=== PATIENT | female | born 1990 | race Caucasian/White ===

== ENCOUNTER 2017-09-16 16:44 | Emergency (ER) | payer SELFPAY ==
[~2017-09-16] VITALS: Ht 165.1 cm; Wt 72.6 kg
[2017-09-16 16:48] VITALS: BP 124/94
[2017-09-16 19:30] VITALS: BP 117/67
== END 2017-09-16 19:15 | disposition home or self-care (01) ==
LOC: MED 16:44
DX: S00.33XA Contusion of nose, initial encounter (principal); V89.2XXA Person injured in unspecified motor-vehicle accident, traffic, initial encounter; Y93.19 Activity, other involving water and watercraft; Y92.488 Other paved roadways as the place of occurrence of the external cause; Y99.8 Other external cause status
CPT/HCPCS: 99283

== ENCOUNTER 2017-12-04 22:16 | Inpatient (IN) | payer OTHER ==
[~2017-12-04] VITALS: Ht 162.6 cm; Wt 77.1 kg
--- NOTE | 2017-12-04 22:16 | NUR ---
Patient BIBA BLS, transferred to bed 4. RN evaluating patient at bedside.
[2017-12-04 22:19] VITALS: BP 148/84
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
[2017-12-04] MEDS ORDERED: ALPRAZolam 0.5 MG TAB PO ONE (22:40)
--- NOTE | 2017-12-04 23:14 | NUR ---
UNABLE TO OBTAIN EKG AT THIS TIME, DR ERNANDEZ AWARE, WILL ATTEMPT LATER
[2017-12-04] MEDS ORDERED: HALOPERIDOL IM 5 MG/ML VIAL IM ONE (23:15)
[2017-12-04] MEDS ORDERED: diphenhydrAMINE 50 MG/ML VIAL IM ONE (23:15)
[2017-12-04 23:51] LABS: BASOPHILS # (AUTO) 0.1 K/uL (0.00-0.22); BASOPHILS % (AUTO) 0.9 % (0.0-2.0); EOSINOPHILS # (AUTO) 0.5 K/uL (0-0.4); EOSINOPHILS % (AUTO) 5.8 % (0.0-4.0); HEMATOCRIT 39.7 % (36-48); HEMOGLOBIN 13.7 g/dL (12.0-16.0); LYMPHOCYTES # (AUTO) 2.3 K/uL (2.5-16.5); LYMPHOCYTES % (AUTO) 24.7 % (20.5-51.1); MEAN CORPUSCULAR HEMOGLOBIN 31 pg (27-31); MEAN CORPUSCULAR HGB CONC 35 g/dL (33-37); MEAN CORPUSCULAR VOLUME 89.2 fL (80-94); MONOCYTES # (AUTO) 0.6 K/uL (0.8-1.0); MONOCYTES % (AUTO) 6.1 % (1.7-9.3); NEUTROPHILS # (AUTO) 5.9 K/uL (1.8-7.7); NEUTROPHILS % (AUTO) 62.5 % (42.2-75.2); PLATELET COUNT (AUTO) 221 K/uL (140-450); RED BLOOD CELL COUNT(AUTO) 4.45 MIL/uL (4.20-5.40); RED CELL DISTRIBUTION WIDTH 12.6 % (11.6-13.7); WHITE BLOOD COUNT (AUTO) 9.4 K/uL (4.8-10.8)
[2017-12-05 00:10] LABS: ANION GAP 15.9 (8-16); CARBON DIOXIDE 23.6 mmol/L (21-32); CREATININE 0.9 mg/dL (0.6-1.3); POTASSIUM 3.5 mmol/L (3.5-5.1)
[2017-12-05 00:12] LABS: SALICYLATE < 2.8 mg/dL (2.8-20.0)
[2017-12-05 00:19] LABS: TOTAL BILIRUBIN 0.2 mg/dL (0.0-1.0)
--- NOTE | 2017-12-05 00:20 | NUR ---
PT SLEEPING. RESP. EVEN/UNLABORED. NAD. VSS. WILL CONTINUE TO MONITOR.
[2017-12-05 00:23] LABS: CREATINE KINASE MB 1.8 ng/mL (0-3.6)
[2017-12-05 00:24] LABS: BARBITURATE, URINE NEG. ng/ml (NEG <=200); BENZODIAZEPINE, URINE POS. ng/mL (NEG <=200); CANNABINOID, URINE NEG. ng/mL (NEG <=50); COCAINE, URINE POS. ng/mL (NEG <=300); OPIATE, URINE NEG. ng/mL (NEG <=2000); PHENCYCLIDINE SCREEN,URINE NEG. ng/mL (NEG <=25)
[2017-12-05] MEDS ORDERED: ONDANSETRON 4 MG/2 ML VIAL IM/IVP PRN (02:15)
[2017-12-05] MEDS ORDERED: ACETAMINOPHEN 325 MG TAB PO PRN (02:15)
[2017-12-05] MEDS ORDERED: ZOLPIDEM 5 MG TAB PO PRN (02:15)
[2017-12-05] MEDS ORDERED: IBUPROFEN 800 MG TAB PO PRN (02:15)
[2017-12-05] MEDS ORDERED: DOCUSATE SODIUM 100 MG GELCAP PO PRN (02:15)
--- NOTE | 2017-12-05 02:20 | NUR ---
PT SLEEPING. RESP. EVEN/UNLABORED. NAD. VSS. PT AWAITS ADMISSION. WILL CONTINUE TO MONITOR.
[2017-12-05 02:46] LABS: APPEARANCE,URINE CLOUDY (CLEAR); BILIRUBIN,URINE NEGATIVE (NEGATIVE); BLOOD, URINE 1+ (NEGATIVE); COLOR,URINE YELLOW (YELLOW); LEUKOCYTE ESTERASE ,URINE TRACE (NEGATIVE); NITRITE, URINE NEGATIVE (NEGATIVE); UGLUCOSE NEGATIVE (NEGATIVE)
--- NOTE | 2017-12-05 03:00 | NUR ---
Patient will be admitted to care of [facility]. Admited to MED/SURG. Will go to room 109A. Belongings list completed. Report to WILFREDO BURRELL.
[2017-12-05 03:03] LABS: PHOSPHORUS 4.7 mg/dL (2.5-4.9); THYROID STIMULATING HORMONE 1.02 uIU/mL (0.34-3.74)
[2017-12-05 03:26] LABS: RBC,URINE 11-20 (MOD) /HPF (0-5)
--- NOTE | 2017-12-05 03:26 | NUR ---
PT ARRIVED ON UNIT VIA GURNEY WITH TWO ER NURSES. RECEIVED REPORT FROM ER NURSE AT PT BEDSIDE. PT IN STABLE CONDITION. PT IS DROWSY BUT AROUSABLE. R FA 22G IV IN PLACE AND PATENT. BRUISING NOTED ON BUE/BLE. LACERATION ON L WRIST AND L KNEE. CALLUS ON BILATERAL FEET. BED LOCKED, LOWEST POSITION WITH SIDE RAILS UP. SITTER IN ROOM D/T 5150 HOLD. WILL CONTINUE TO MONITOR PT.
[2017-12-05 03:32] VITALS: BP 98/50
[2017-12-05] MEDS ORDERED: MULTIVITAMIN-12 10 ML, THIAMINE 100 MG, MAGNESIUM SULFATE 50% 2,000 MG, FOLIC ACID 5 MG... IV ONE ×5 (04:00)
[2017-12-05] MEDS: NACL 0.9% 1,000 ML IV SCH ×2 (04:00→10:35)
--- NOTE | 2017-12-05 04:03 | NUR ---
CONSULT FAXED TO DR SARGENT. LEFT MESSAGE TO EXCHANGE.
[2017-12-05] MEDS ORDERED: THIAMINE 200 MG/2 ML VIAL ONE ×2 (04:19→04:42)
[2017-12-05] MEDS ORDERED: MULTIVITAMIN-12 10 ML VIAL IV ONE ×2 (04:19→04:42)
[2017-12-05] MEDS ORDERED: MAGNESIUM SULFATE 50% 1000 MG/2 ML VIAL IV ONE (04:42)
[2017-12-05] MEDS ORDERED: FOLIC ACID 5 MG/ML SYR ONE (04:42)
--- NOTE | 2017-12-05 05:30 | NUR ---
PT MOTHER HERE TO SEE HER.
--- NOTE | 2017-12-05 06:00 | NUR ---
CXR DONE AT BEDSIDE. WILL FOLLOW UP RESULT.
[2017-12-05] MEDS ORDERED: cefTRIAXone 1,000 MG VIAL ONE (06:22)
--- NOTE | 2017-12-05 06:34 | NUR ---
PT STILL SLEEPING IN BED. ABX CURRENTLY INFUSING. WILL CONTINUE TO MONITOR.
--- NOTE | 2017-12-05 07:20 | NUR ---
ENDORSED PT TO DAY SHIFT NURSE AT BEDSIDE FOR CONTINUITY OF CARE. PT IN STABLE CONDITION.
--- NOTE | 2017-12-05 07:21 | NUR ---
REPORT RECEIVED FROM PM NURSE AT BEDSIDE. PT WAS SLEEPING ON HER BED. MARIE AT THE BEDSIDE. WILL CONTINUE TO MONITOR PT.
[2017-12-05 08:00] VITALS: BP 118/76
[2017-12-05] MEDS ORDERED: CALCIUM CARB/VIT-D 500 MG/200 IU 1 TAB PO SCH (09:00)
[2017-12-05] MEDS: LACTOBACILLUS RHAMNOSUS GG 1 EACH CAP PO SCH ×3 (09:58→17:48)
--- NOTE | 2017-12-05 10:01 | NUR ---
ADMINISTERED MEDS ORDERED TO ID. TOLERATED WELL. PT WAS LYING ON HER BED. NO SIGN OF DISTRESS. INFORMED HER THAT HER MOTHER STOPPED BY BUT SHE WAS NOT AWAKE. PT WANTED TO CALL HER MOTHER. GAVE HER PHONE, FRANK AT BEDSIDE. IV BANANA BAG INFUSING WELL. ALL SAFETY MEASURE IN PLACE. WILL CONTINUE TO MONITOR PT.
[2017-12-05 10:02] LABS: CHOL/HDL RATIO 4.6 (1-4.5)
[2017-12-05] MEDS ORDERED: LORazepam 2 MG/ML VIAL IVP PRN (11:10)
--- NOTE | 2017-12-05 11:30 | NUR ---
CHECKED ON PT. PT SLEEPING AT THIS TIME. WILL CONTINUE TO MONITOR PT. MARIE AT THE BEDSIDE.PT 5150.
--- NOTE | 2017-12-05 12:38 | NUR ---
ADMINISTERED MEDS TO PT ORDERED. PT UP SITTING ON BED AND EATING HER LUNCH. ASKED PT IF SHE HAS PAIN OR DISCOMFORT, PT DENIES IT. PT DENIES TO ANY ACTIVE WOUND PRESENT. PT TALKED TO HER MOTHER. PT STATES THAT SHE WILL BE GOING HOME IF SEES HER TODAY. NO DISCHARGE ORDER AT THIS TIME. NS INFUSING WELL, NO SIGN OF DISTRESS SEEN ON PT. WILL CONTINUE TO MONITOR THE PT.
--- NOTE | 2017-12-05 13:08 | NUR ---
MOTHER JUST CALLED THE DAUGHTER. PT TALKING WITH MOM ON PHONE.
--- NOTE | 2017-12-05 14:30 | NUR ---
CHECKED ON PT. SLEEPING AT THIS TIME. CASE MANAGEMENT ASKED TO FAX 5150 FORM TO THE. MEJIA JENSEN WILL FAX 5150 FORM TO THEM. WILL CONTINUE TO MONITOR PT.
--- NOTE | 2017-12-05 14:41 | NUR ---
CM NOTE INITIAL REVIEW FAXED TO [facility] [phone] PH# [phone] [place] EXT [phone] AND TO [facility] [phone] PH# [phone] LELO EXT *[phone]
--- NOTE | 2017-12-05 15:21 | NUR ---
CM NOTE PER DR. LOPEZ, PATIENT IS MEDICALLY CLEAR FOR PSYCH PLACEMENT. PACKET FAXED TO [facility] [phone] # [phone]
[2017-12-05 16:00] VITALS: BP 116/70
--- NOTE | 2017-12-05 17:21 | NUR ---
PATIENT HAS BEEN SCREENED AND CATEGORIZED LOW NUTRITION RISK. PATIENT WILL BE SEEN WITHIN 7 DAYS OF ADMISSION. 12/11/[address]
--- NOTE | 2017-12-05 17:54 | NUR ---
ADMINISTERED MEDS TO PT. SHE WAS SLEEPING ON LFT SIDE. INFORMED HER THAT WILL INITIATE THE DISCHARGE ORDER WHEN DR PUT ORDER FOR IT. VERBALIZED UNDERSTANDING OF TEACHING. STATES SHE FEELS BETTER THAN TIME SHE WAS ADMITTED. NO SIGN OF DISTRESS . WILL CONTINUE TO MONITOR PT.
[2017-12-05 18:03] VITALS: BP 116/70
--- NOTE | 2017-12-05 18:40 | NUR ---
PT DISCHARGED FROM THE HOSPITAL. PT STABLE , AOX4, WALKS INDEPENDENTLY. PT LEFT WITH HER MOTHER. ALL BELONGINGS WERE TAKEN BY THE PT. PT WENT HOME WITH HER MOTHER. SHE WALKED HERSELF OUT OF HOSPITAL.
[2017-12-06 07:23] LABS: T4 (THYROXINE) 6.1 ug/dL (4.5-12.0)
[2017-12-06] MEDS ORDERED: THIAMINE 200 MG/2 ML VIAL IM SCH (09:00)
[2017-12-06] MEDS ORDERED: chlordiazePOXIDE 25 MG CAP PO SCH (09:00)
[2017-12-06] MEDS ORDERED: FOLIC ACID 1 MG TAB PO SCH (09:00)
[2017-12-06] MEDS ORDERED: MULTIVITAMIN 1 TAB PO SCH (09:00)
== END 2017-12-05 18:45 | disposition home or self-care (01) | DRG 816 ==
LOC: MED 22:16 → MTU 12-05 02:35
PROVIDERS: ADMIT General Practice; ATTEND General Practice
DX: T40.5X1A Poisoning by cocaine, accidental (unintentional), initial encounter (principal); G92 Toxic encephalopathy; F33.1 Major depressive disorder, recurrent, moderate; E83.51 Hypocalcemia; N39.0 Urinary tract infection, site not specified; F10.129 Alcohol abuse with intoxication, unspecified; F14.10 Cocaine abuse, uncomplicated; S61.512A Laceration without foreign body of left wrist, initial encounter; Y90.7 Blood alcohol level of 200-239 mg/100 ml; E66.3 Overweight; F41.9 Anxiety disorder, unspecified; X78.8XXA Intentional self-harm by other sharp object, initial encounter; Y93.89 Activity, other specified; Y92.89 Other specified places as the place of occurrence of the external cause; Y99.8 Other external cause status; Z68.29 Body mass index [BMI] 29.0-29.9, adult
CPT/HCPCS: 36415; 71045; 80053; 80305; 81001; 81025; 82150; 82550; 82553; 83036; 83690; 83735; 84100; 84134; 84436; 84443; 84484; 85025; 85610; 85730; 87081; 87086; 93005; 96372; 99285; A9153; G0480; G0482; J0696; J1200; J1630; J3411; J3475; J3490; J7030; J7060; Q0092

== ENCOUNTER 2017-12-27 12:19 | Emergency (ER) | payer OTHER ==
[~2017-12-27] VITALS: Ht 165.1 cm; Wt 72.6 kg
--- NOTE | 2017-12-27 12:21 | NUR ---
PT NELDA PETES
--- NOTE | 2017-12-27 12:23 | NUR ---
PT TAKEN TO BED 4 BY [facility] CREW
[2017-12-27 12:25] VITALS: BP 129/76
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
--- NOTE | 2017-12-27 12:35 | NUR ---
PT KEEPS TRYING TO WANDER THROUGH THE UNIT. PATIENT GUIDED BACK TO BED 4.
--- NOTE | 2017-12-27 12:40 | NUR ---
PT WANDERING THE UNIT AGAIN AT THIS TIME. CRYING AND LOOKING FOR HER PHONE. PT TOLD THAT WE HAVE NOT RECEIVED HER PHONE. PT AGAIN TAKEN TO BED 4. WILL CONTINUE TO MONITOR.
--- NOTE | 2017-12-27 12:50 | NUR ---
PT ATTEMPTING TO CALL HER MOM AND BOYFRIEND AT THIS TIME ON OUR NURSE STATION PHONE. PT UNABLE TO DIAL THE NUMBER HERSELF. PT ASSISTED BY FORKLIFT DRIVER.
--- NOTE | 2017-12-27 13:03 | NUR ---
PT MOTHER REACHED BY DISTRIBUTION SYSTEMS SUPERINTENDENT TEIDA AT THIS TIME.
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
--- NOTE | 2017-12-27 13:35 | NUR ---
PT WALKED OUT OF ER AT THIS TIME, ADELA MELCHOR CALLED TO MAKE SURE PATIENT IS SAFE. CHARGE NURSE AND ER MD MARTINES MADE AWARE.
--- NOTE | 2017-12-27 13:55 | NUR ---
OFFICER JEROME CAME AND SPOKE TO ME AT THIS TIME IN REGARDS TO THE EVENTS THAT OCCURED WITH THE PATIENT.
== END 2017-12-27 13:35 | disposition left against medical advice (07) ==
LOC: MED 12:19
DX: F41.0 Panic disorder [episodic paroxysmal anxiety] (principal)
CPT/HCPCS: 99281; 99283

== ENCOUNTER 2018-07-16 09:49 | Emergency (ER) | payer OTHER ==
[~2018-07-16] VITALS: Ht 165.1 cm; Wt 78.5 kg
--- NOTE | 2018-07-16 09:56 | NUR ---
PT AMBULATES TO BED 11
[2018-07-16 10:00] VITALS: BP 130/96
--- NOTE | 2018-07-16 10:11 | NUR ---
PATIENT PRESENTS TO ED WITH pt c/o mottled appearance to bue x chronic increased redness to knuckles, increased pain, cap refill at 3sec cool to touch---no other discoloration to lower extremities noted pt admits to almost daily abusing etoh--no tremors noted at this time . DENIES N/V/D; SKIN IS PINK/WARM/DRY; AAOX4 WITH EVEN AND STEADY GAIT; LUNGS CLEAR BL; HR EVEN AND REGULAR; PT DENIES ANY FEVER, CP, SOB, OR COUGH AT THIS TIME; PATIENT STATES PAIN OF 7/10 AT THIS TIME; VSS; PATIENT POSITIONED FOR COMFORT; HOB ELEVATED; BEDRAILS UP X2; BED DOWN. ER MD MADE AWARE OF PT STATUS.
--- NOTE | 2018-07-16 10:20 | NUR ---
Patient being evaluated by physician at bedside.
[2018-07-16 11:12] LABS: BASOPHILS # (AUTO) 0.1 K/uL (0.00-0.22); EOSINOPHILS # (AUTO) 0.2 K/uL (0-0.4); EOSINOPHILS % (AUTO) 2.9 % (0.0-4.0); HEMATOCRIT 43.5 % (36-48); HEMOGLOBIN 14.6 g/dL (12.0-16.0); LYMPHOCYTES # (AUTO) 2.3 K/uL (2.5-16.5); LYMPHOCYTES % (AUTO) 27.3 % (20.5-51.1); MEAN CORPUSCULAR HEMOGLOBIN 30 pg (27-31); MEAN CORPUSCULAR HGB CONC 34 g/dL (33-37); MONOCYTES # (AUTO) 0.5 K/uL (0.8-1.0); MONOCYTES % (AUTO) 6.5 % (1.7-9.3); NEUTROPHILS # (AUTO) 5.2 K/uL (1.8-7.7); NEUTROPHILS % (AUTO) 62.3 % (42.2-75.2); PLATELET COUNT (AUTO) 232 K/uL (140-450); RED BLOOD CELL COUNT(AUTO) 4.88 MIL/uL (4.20-5.40); WHITE BLOOD COUNT (AUTO) 8.4 K/uL (4.8-10.8)
[2018-07-16 11:24] LABS: ALBUMIN 4.5 g/dL (3.4-5.0); ANION GAP 16.4 (8-16); CARBON DIOXIDE 27.7 mmol/L (21-32); CREATININE 0.8 mg/dL (0.6-1.3); POTASSIUM 3.1 mmol/L (3.5-5.1); TOTAL BILIRUBIN 0.3 mg/dL (0.0-1.0)
[2018-07-16 11:48] LABS: PROTHROMBIN TIME 10.2 secs (10.8-13.4)
[2018-07-16 12:02] VITALS: BP 117/63
== END 2018-07-16 12:02 | disposition home or self-care (01) ==
LOC: MED 09:49
DX: F10.20 Alcohol dependence, uncomplicated (principal); R22.31 Localized swelling, mass and lump, right upper limb; R22.32 Localized swelling, mass and lump, left upper limb; L53.8 Other specified erythematous conditions
CPT/HCPCS: 36415; 80053; 83690; 84703; 85025; 85610; 99283

== ENCOUNTER 2018-07-24 21:17 | Emergency (ER) | payer OTHER ==
[~2018-07-24] VITALS: Ht 165.1 cm; Wt 77.1 kg
[2018-07-24 21:20] VITALS: BP 153/80
--- NOTE | 2018-07-24 21:20 | NUR ---
PATIENT BIB WC TO ER BED 10.
--- NOTE | 2018-07-24 21:31 | NUR ---
Vic clark in [facility] - 07/24/18 at 2131 by VICKEY PT TAKEN TO BED 10
--- NOTE | 2018-07-24 22:01 | NUR ---
Dr. Martines evaluating patient at bedside.
[2018-07-24] MEDS ORDERED: MORPHINE SULFATE 4 MG/ML SYR IM ONE (22:05)
--- NOTE | 2018-07-24 22:41 | NUR ---
PT TAKEN TO RADIOLOGY
--- NOTE | 2018-07-24 22:58 | NUR ---
PT RETURN FROM RADIOLOGY
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
--- NOTE | 2018-07-24 23:46 | NUR ---
SHORT ANTERIOR LEG SPLINT USED
[2018-07-24 23:56] VITALS: BP 128/74
--- NOTE | 2018-07-24 23:56 | NUR ---
Patient discharged with v/s stable. Written and verbal after care instructions given and explained. Patient alert, oriented and verbalized understanding of instructions. Wheel Chair Assisted with to car. All questions addressed prior to discharge. ID band removed. Patient advised to follow up with PMD. Rx of motrin and tramadol given. Patient educated on indication of medication including possible reaction and side effects. Opportunity to ask questions provided and answered.
== END 2018-07-24 23:56 | disposition home or self-care (01) ==
LOC: MED 21:17
DX: S93.401A Sprain of unspecified ligament of right ankle, initial encounter (principal); S00.511A Abrasion of lip, initial encounter; R55 Syncope and collapse; V47.5XXA Car driver injured in collision with fixed or stationary object in traffic accident, initial encounter; W22.10XA Striking against or struck by unspecified automobile airbag, initial encounter; Y93.89 Activity, other specified; Y92.488 Other paved roadways as the place of occurrence of the external cause; Y99.8 Other external cause status
CPT/HCPCS: 29515; 70450; 72125; 73502; 73552; 73610; 96372; 99284; J2270

== ENCOUNTER 2018-08-21 17:37 | Emergency (ER) | payer OTHER ==
[~2018-08-21] VITALS: Ht 165.1 cm; Wt 76.7 kg
[2018-08-21 17:58] VITALS: BP 120/89
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
[2018-08-21 19:15] VITALS: BP 120/89
--- NOTE | 2018-08-21 19:15 | NUR ---
Patient discharged with v/s stable. Written and verbal after care instructions given and explained. Patient verbalized understanding. Ambulatory with steady gait. All questions addressed prior to discharge. Advised to follow up with PMD.
== END 2018-08-21 19:15 | disposition home or self-care (01) ==
LOC: MED 17:37
DX: S93.401D Sprain of unspecified ligament of right ankle, subsequent encounter (principal); V89.2XXD Person injured in unspecified motor-vehicle accident, traffic, subsequent encounter
CPT/HCPCS: 99281

== ENCOUNTER 2018-08-31 12:53 | Emergency (ER) | payer OTHER ==
[~2018-08-31] VITALS: Ht 165.1 cm; Wt 77.7 kg
[2018-08-31 13:00] VITALS: BP 127/84
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
--- NOTE | 2018-08-31 13:37 | NUR ---
DR SOMMER AT BEDSIDE FOR PT EVALUATION
--- NOTE | 2018-08-31 13:48 | NUR ---
Vic clark in EDM - 08/31/18 at 1354 by MED WOUND CARE PROVIDED TO LEFT CHEECK. CLEANSE WITH NS, PAT DRY, APPLIED BACITRACIN 1 %. LEFT OPEN TO AIR. TOLERATED PROCEDURE WELL.
--- NOTE | 2018-08-31 13:48 | NUR ---
WOUND CARE PROVIDED TO LEFT CHEEK. CLEANSE WITH NS, PAT DRY, APPLIED BACITRACIN 1 %. LEFT OPEN TO AIR. TOLERATED PROCEDURE WELL
[2018-08-31] MEDS ORDERED: BACITRACIN OINT 500 UNITS/GM PKT TP ONE ×2 (13:50→13:52)
[2018-08-31 14:30] VITALS: BP 122/70
--- NOTE | 2018-08-31 14:30 | NUR ---
Patient discharged with v/s stable. Written and verbal after care instructions given and explained. Patient alert, oriented and verbalized understanding of instructions. Ambulatory with steady gait. All questions addressed prior to discharge. ID band removed. Patient advised to follow up with PMD. Rx of Keflex and Bacitracin given. Patient educated on indication of medication including possible reaction and side effects. Opportunity to ask questions provided and answered.
== END 2018-08-31 14:30 | disposition home or self-care (01) ==
LOC: MED 12:53
DX: S01.501A Unspecified open wound of lip, initial encounter (principal); S01.20XA Unspecified open wound of nose, initial encounter; W18.09XA Striking against other object with subsequent fall, initial encounter; Y93.89 Activity, other specified; Y92.89 Other specified places as the place of occurrence of the external cause; Y99.8 Other external cause status
CPT/HCPCS: 99283

== ENCOUNTER 2018-12-28 19:02 | Emergency (ER) | payer OTHER ==
[~2018-12-28] VITALS: Ht 165.1 cm; Wt 77.1 kg
[2018-12-28 19:12] VITALS: BP 116/86
--- NOTE | 2018-12-28 19:15 | NUR ---
pt taken to lobby in wheelchair
--- NOTE | 2018-12-28 21:08 | NUR ---
PT TAKEN TO BED
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
[2018-12-28 21:52] VITALS: BP 116/86
--- NOTE | 2018-12-28 21:52 | NUR ---
Patient discharged with v/s stable. Written and verbal after care instructions given and explained. Patient verbalized understanding. All questions addressed prior to discharge. Advised to follow up with PMD.
== END 2018-12-28 21:51 | disposition home or self-care (01) ==
LOC: MED 19:02
DX: S72.92XD Unspecified fracture of left femur, subsequent encounter for closed fracture with routine healing (principal); S72.91XD Unspecified fracture of right femur, subsequent encounter for closed fracture with routine healing; X58.XXXD Exposure to other specified factors, subsequent encounter
CPT/HCPCS: 99281

== ENCOUNTER 2019-07-19 13:30 | Inpatient (IN) | payer OTHER ==
[2019-07-19] VITALS (31 sets, daily range): BP systolic 78–143; BP diastolic 29–101
[~2019-07-19] VITALS: Ht 165.1 cm; Wt 76.7 kg
--- NOTE | 2019-07-19 13:30 | NUR ---
RT AT BEDSIDE
--- NOTE | 2019-07-19 13:30 | NUR ---
REGISTERED NURSES AT BEDSIDE
--- NOTE | 2019-07-19 13:30 | NUR ---
XRAY AT BEDSIDE
--- NOTE | 2019-07-19 13:30 | NUR ---
ermd at bedside
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
[2019-07-19] MEDS ORDERED: INTUBATION KIT MC ONE (13:33)
[2019-07-19] MEDS ORDERED: SUCCINYLCHOLINE CHLORIDE 200 MG/10 ML VIAL IVP ONE (13:35)
[2019-07-19] MEDS ORDERED: NACL 0.9% 1,000 ML IV ONE ×2 (13:35→15:00)
--- NOTE | 2019-07-19 13:40 | NUR ---
PT INTUBATED AT BEDSIDE
[2019-07-19] MEDS ORDERED: PROPOFOL 1000 MG/100 ML PREMIX 100 ML IV ONE (13:45)
[2019-07-19 14:09] LABS: BASOPHILS # (AUTO) 0.1 K/uL (0.00-0.22); BASOPHILS % (AUTO) 1.1 % (0.0-2.0); EOSINOPHILS # (AUTO) 0.1 K/uL (0-0.4); HEMATOCRIT 40.2 % (36-48); HEMOGLOBIN 13.2 g/dL (12.0-16.0); LYMPHOCYTES # (AUTO) 2.4 K/uL (2.5-16.5); LYMPHOCYTES % (AUTO) 43.8 % (20.5-51.1); MEAN CORPUSCULAR HEMOGLOBIN 30 pg (27-31); MEAN CORPUSCULAR HGB CONC 33 g/dL (33-37); MEAN CORPUSCULAR VOLUME 90.4 fL (80-94); MONOCYTES # (AUTO) 0.3 K/uL (0.8-1.0); MONOCYTES % (AUTO) 4.8 % (1.7-9.3); NEUTROPHILS # (AUTO) 2.7 K/uL (1.8-7.7); NEUTROPHILS % (AUTO) 48.3 % (42.2-75.2); PLATELET COUNT (AUTO) 235 K/uL (140-450); RED BLOOD CELL COUNT(AUTO) 4.45 MIL/uL (4.20-5.40); WHITE BLOOD COUNT (AUTO) 5.5 K/uL (4.8-10.8)
--- NOTE | 2019-07-19 14:35 | NUR ---
Vic clark in [facility] - 07/19/19 at 1435 by MYLENE registered nurses at [facility]
--- NOTE | 2019-07-19 14:35 | NUR ---
Vic clark in [facility] - 07/19/19 at 1435 by MYLENE xray at bedside
--- NOTE | 2019-07-19 14:45 | NUR ---
TO CT VIA GURNEY. PRIMARY RN, RT, AND EVENT MGR AT BEDSIDE. PT TRANSPORTED WITH BEDSIDE MONITOR.
[2019-07-19 15:00] LABS: ALBUMIN 3.9 g/dL (3.4-5.0); ANION GAP 17.2 (8-16); ASPARTATE AMINOTRANSFERASE 15 U/L (15-37); CHLORIDE 103 mmol/L (98-107); CREATININE 1.1 mg/dL (0.6-1.3); GFR ARICAN-AMERICAN 77 mL/min (>90); GLUCOSE 256 mg/dL (74-106); POTASSIUM 4.2 mmol/L (3.5-5.1); SODIUM SERUM 140 mmol/L (136-145); THYROID STIMULATING HORMONE 3.02 uIU/mL (0.34-3.74); TOTAL BILIRUBIN 0.2 mg/dL (0.0-1.0); UREA NITROGEN, BLOOD 15 mg/dL (7-18)
[2019-07-19] MEDS ORDERED: LACTATED RINGERS 1,000 ML IV ONE (15:00)
--- NOTE | 2019-07-19 15:05 | NUR ---
PT BACK IN ROOM , VSS STABLE
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
[2019-07-19 15:12] LABS: ACETAMINOPHEN < 0.5 ug/ml (10-30); SALICYLATE < 2.8 mg/dL (2.8-20.0)
--- NOTE | 2019-07-19 15:24 | NUR ---
Vic clark in [facility] - 07/19/19 at [address] [facility] RT AT BEDSIDE ADMINISTERING BREATHING TREATMENT.
[2019-07-19] MEDS ORDERED: ONDANSETRON 4 MG/2 ML VIAL IVP PRN (16:05)
[2019-07-19] MEDS ORDERED: MORPHINE SULFATE 2 MG/ML SYR IVP PRN (16:05)
[2019-07-19] MEDS ORDERED: NACL 0.9% 1,000 ML IV SCH (16:05)
[2019-07-19] MEDS ORDERED: MORPHINE SULFATE 4 MG/ML SYR IVP PRN (16:05)
[2019-07-19 16:11] LABS: APPEARANCE,URINE CLEAR (CLEAR); BILIRUBIN,URINE NEGATIVE (NEGATIVE); BLOOD, URINE 3+ (NEGATIVE); COLOR,URINE DARK YELLOW (YELLOW); LEUKOCYTE ESTERASE ,URINE NEGATIVE (NEGATIVE); NITRITE, URINE NEGATIVE (NEGATIVE); UGLUCOSE TRACE (NEGATIVE)
[2019-07-19] MEDS ORDERED: NALOXONE 0.4 MG/ML VIAL IVP SCH (16:20)
[2019-07-19 16:21] LABS: BARBITURATE, URINE NEG. ng/ml (NEG <=200); BENZODIAZEPINE, URINE POS. ng/mL (NEG <=200); CANNABINOID, URINE NEG. ng/mL (NEG <=50); COCAINE, URINE NEG. ng/mL (NEG <=300); OPIATE, URINE NEG. ng/mL (NEG <=2000); PHENCYCLIDINE SCREEN,URINE NEG. ng/mL (NEG <=25)
[2019-07-19 16:27] LABS: RBC,URINE 20-50 /HPF (0-5); WBC,URINE NONE SEEN /HPF (0-5)
[2019-07-19] MEDS ORDERED: DEXT 5% / NACL 0.9% 500 ML IV SCH (16:50)
[2019-07-19] MEDS ORDERED: ALBUTEROL SULFATE/IPRATROPIU 3 ML SOL IH PRN (16:50)
--- NOTE | 2019-07-19 17:30 | NUR ---
ADMITTED FROM ER THIS 28 YR OLD FEMALE PER HEIKE FOR POSSIBLE DRUG OD. UNABLE TO OBTAIN INFO FROM PT. ETT TO VENT TV500, FI02 35%, AC 14/MIN. PEEP 5. WITH RHONCHI ON AUSCULTATION, 02 AST 100%. ON PROPOFOL DRIP 1000 MG IN 100 ML @ 50 MCG/KG/MIN INFUSING VIA LT WRIST IV SITE 6 20. TO KEEP RASS -3. NGT INTACT.PLACEMENT VERIFIED BY AIRCHECK. EPPERSON CATH INTACT AND PATENT. URINE CLEAR YELLOW URINE.
--- NOTE | 2019-07-19 17:30 | NUR ---
Patient will be admitted to [facility]. Admited to ICU 8. Will go to room 8. Belongings list completed. Report to JENNIFER VILLALOBOS.
[2019-07-19] MEDS: PROPOFOL 1000 MG/100 ML PREMIX 100 ML IV PRN ×3 (17:32→23:18)
--- NOTE | 2019-07-19 17:35 | NUR ---
DRY WEIGHT USED FOR PROPOFOL DRIP IS 77.11 KG.
--- NOTE | 2019-07-19 17:45 | NUR ---
ATTEMPTED TO START ANOTHER IV LINE. UNABLE TO AFTER 3 ATTEMPTS.
--- NOTE | 2019-07-19 18:00 | NUR ---
IV D5 0.9 NS A STARTED AT 100 ML/HR. PT TRIES TO PULL ETT WHEN RESTLESS. DR. CHRISTIAN NOTIFIED. SOFT WRIST RESTRAINTS APPLIED. MADE AWARE ALSO OF INABILITY TO RESTART ANOTHER IV ACCESS. Addendum: 07/19/19 at 1946 by Chey Anguiano RN UNABLE TO CONTACT FAMILY FOR PICC LINE CONSENT. DRS. NOLAN AND GINO SIGNED CONSENT FOR PICC LINE. PICC LINE NURSE NOTIFIED BY MANUFACTURING PROCESS TECHNICIAN.
[2019-07-19] MEDS: DEXT 5% /NACL 0.9% 1,000 ML IV SCH (18:04)
--- NOTE | 2019-07-19 18:20 | NUR ---
VENT SETTINGS CHANGED BY RT BILL TO TV 450, AC 16/MIN, FI02 30% PEEP + 5.
--- NOTE | 2019-07-19 19:15 | NUR ---
REPORT GIVEN TO MIREILLE VILLALOBOS.
--- NOTE | 2019-07-19 19:15 | NUR ---
PHONE CALL TO PTS NOK; MOTHER; REG [facility]; [phone]; [phone] NO ANSWER; UNABLE TO LEAVE MESSAGE, IT SAYS MAILBOX NOT SET UP
--- NOTE | 2019-07-19 19:30 | NUR ---
DRY WEIGHT 77.11; PT ON PROPOFOL DRIP AT 50MCG/KG/MIN.
--- NOTE | 2019-07-19 19:35 | NUR ---
ASSUMED CARE OF PT.INITIAL ASSESSMENT COMPLETED.PT SEDATED .ON PROPOFOL DRIP AT 50- MCG/KG/MIN. SR ON MONITOR. ETT TO VENT FIO2 30% TV 450 AC 16 PEEP 5.WITH PERIPHERAL IV TO LT WRIST G 20 INTACT INFUSING PROPOFOL DRIP AND ORDERED IVF.WITH NGT TO LT NARES IN PLACE.CLAMPED.W/EPPERSON CATHETER TO BSD DRAINING YELLOW URINE.W/SCARS TO BOTH KNEES ALSO NOTED AND MULTIPLE TATTOOS, OTHERWISE SKIN INTACT.NOTED PT TO HAVE MENSTRUAL PERIOD; CLEANED.REPOSITIONED.FLACC 0
[2019-07-19 19:45] LABS: PROTHROMBIN TIME 11.1 secs (10.8-13.4)
--- NOTE | 2019-07-19 19:47 | NUR ---
DRY WEIGHT USED FOR PROPOFOL DRIP 77.11 KG,
--- NOTE | 2019-07-19 20:00 | NUR ---
ORAL CARE USING VAP KIT RENDERED.NO SOB NOTED/ ETT TO VENT.FLACC 0.REPOSITIONED
--- NOTE | 2019-07-19 22:30 | NUR ---
PICC LINE NURSE ALAN AT BEDSIDE WITH COMPUTER SYSTEMS DESIGNER.INSERTED PICC LINE TO DEANDRA. CXR ORDERED AND TAKEN.
[2019-07-20] VITALS (45 sets, daily range): BP systolic 62–148; BP diastolic 34–102
--- NOTE | 2019-07-20 | NUR ---
ORAL CARE USING VAP KIT RENDERED.FLACC 0.REPOSITIONED
[2019-07-20] MEDS: PROPOFOL 1000 MG/100 ML PREMIX 100 ML IV PRN ×2 (02:02→08:51)
[2019-07-20] MEDS ORDERED: MIDAZOLAM MDV 50 MG in NACL 0.9% 40 ML IV PRN (02:20)
--- NOTE | 2019-07-20 02:20 | NUR ---
PHONE CALL TO DR FOSTER; PULMO QUALITY CONTROL AUDITOR.MADE AWARE PT IS VERY RESTLESS, PT ON PROPOFOL DRIP AT 50MCG/KG/MIN. NEW ORDER FOR VERSED DRIP. NURSE EVENT ORGANIZER BRAXTON AWARE AND CALLED SOAP PRESS FEEDER PHARMACIST
--- NOTE | 2019-07-20 03:56 | NUR ---
RECEIVED VERSED DRIP FROM STRAW HAT BRUSHER PHARMACIST DAWSON.STARTED, VERIFIED WITH RN BRAXTON
[2019-07-20] MEDS: DEXT 5% /NACL 0.9% 1,000 ML IV SCH (03:57)
--- NOTE | 2019-07-20 04:00 | NUR ---
ORAL CARE USING VAP KIT RENDERED.PT ON PEPCID FOR GI PROPHYLAXIS AND LOVENOX FOR DVT PROPHYLAXIS.REPOSITIONED. SECRETIONS SUCTIONED NEEDED
[2019-07-20 06:38] LABS: BASOPHILS % (AUTO) 0.3 % (0.0-2.0); EOSINOPHILS # (AUTO) 0.1 K/uL (0-0.4); EOSINOPHILS % (AUTO) 0.5 % (0.0-4.0); HEMATOCRIT 35.3 % (36-48); HEMOGLOBIN 11.9 g/dL (12.0-16.0); LYMPHOCYTES # (AUTO) 1.8 K/uL (2.5-16.5); LYMPHOCYTES % (AUTO) 15.4 % (20.5-51.1); MEAN CORPUSCULAR HEMOGLOBIN 30 pg (27-31); MEAN CORPUSCULAR HGB CONC 34 g/dL (33-37); MEAN CORPUSCULAR VOLUME 88.4 fL (80-94); MONOCYTES # (AUTO) 0.8 K/uL (0.8-1.0); MONOCYTES % (AUTO) 7.2 % (1.7-9.3); NEUTROPHILS # (AUTO) 8.9 K/uL (1.8-7.7); NEUTROPHILS % (AUTO) 76.6 % (42.2-75.2); PLATELET COUNT (AUTO) 174 K/uL (140-450); RED BLOOD CELL COUNT(AUTO) 3.99 MIL/uL (4.20-5.40); RED CELL DISTRIBUTION WIDTH 12.7 % (11.6-13.7); WHITE BLOOD COUNT (AUTO) 11.6 K/uL (4.8-10.8)
[2019-07-20 06:59] LABS: ALBUMIN 3.6 g/dL (3.4-5.0); ANION GAP 13.5 (8-16); CARBON DIOXIDE 24.3 mmol/L (21-32); CREATININE 0.6 mg/dL (0.6-1.3); TOTAL BILIRUBIN 0.2 mg/dL (0.0-1.0)
[2019-07-20 07:01] LABS: POTASSIUM 2.8 mmol/L (3.5-5.1)
[2019-07-20 07:02] LABS: MAGNESIUM 1.5 mg/dL (1.8-2.4); PHOSPHORUS 1.9 mg/dL (2.5-4.9)
--- NOTE | 2019-07-20 07:15 | NUR ---
REPORT GIVEN TO WILFREDO PHILLIPS.PT IN STABLE CONDITION.
--- NOTE | 2019-07-20 07:30 | NUR ---
rec'd pt on carescape vent settings ac 16 vt 450 peep 5 fio2 30% alarms on and audible and ambu bag at side of vent and vent is plugged into red outlet b\s are clear bilaterally, sxn pt no return, pt is very agitated and pt is orally intubated with 7.5 et tube at 22 cm
[2019-07-20] MEDS ORDERED: KCL 20 MEQ/WATER INJ PREMIX 200 ML IV ONE (08:00)
--- NOTE | 2019-07-20 08:00 | NUR ---
ON DUTY RECEIVED THIS PT ON LYSSA. PT'S HX OF OVERDOSE. PT WAS ALERT, BUT AGITATED EVEN ON PROPOFOL 50MCG MAX DOSE AND VERSED 5MG/HR. BILATERAL SOFT RESTRAINTS ON. SITTER WAS BEDSIDE. VS STABLE.
[2019-07-20] MEDS ORDERED: POTASSIUM CHLORIDE 10 MEQ TABER PO SCH (08:15)
--- NOTE | 2019-07-20 08:20 | NUR ---
PATIENT HAS BEEN SCREENED AND CATEGORIZED MODERATE NUTRITION RISK. PATIENT WILL BE SEEN WITHIN 3-5 DAYS OF ADMISSION. 07/22/19 - 07/24/19 LETTY HANSEN MBA, RD
[2019-07-20] MEDS ORDERED: FAMOTIDINE 20 MG/2 ML VIAL IV SCH (09:00)
[2019-07-20] MEDS ORDERED: ENOXAPARIN 40 MG/0.4 ML SYR SUBQ SCH (09:00)
--- NOTE | 2019-07-20 09:00 | NUR ---
LAB CALLED CRITICAL LAB K+ 2.8. DR. CHRISTIAN WAS PAGED. COVERING DR. ASTORGA CALLED BACK. K BRANDON AND PO KCL WAS ORDERED.
[2019-07-20] MEDS ORDERED: POTASSIUM CHLORIDE 20% 40 MEQ/15 ML UDC PO SCH (09:25)
[2019-07-20] MEDS ORDERED: POTASSIUM CHLORIDE 20% 40 MEQ/15 ML UDC ONE (09:35)
--- NOTE | 2019-07-20 10:12 | NUR ---
pt extubated and placed on 3lnc o2 sat 97%
--- NOTE | 2019-07-20 10:30 | NUR ---
PT WAS EXTUBATED. PT TOLERATED WELL. NGT ALSO D/C'D. RESTRAINS BILATERALL WRIST D/C'D WELL. ICE CHIP OFFERED TO PT. PT TOLERATED PO. PT SWALLOWED WELL.
[2019-07-20] MEDS ORDERED: LORazepam 2 MG/ML VIAL IVP PRN (10:35)
[2019-07-20] MEDS ORDERED: DEXMEDETOMIDINE HCL 200 MCG in NACL 0.9% 48 ML IV PRN (13:00)
--- NOTE | 2019-07-20 13:00 | NUR ---
SEEN BY DR WANG AT BED SIDE . THE PATIEN IS STILL DROWSY , HE WILL COME TO SEE THE PATIENT AGAIN TOMORROW. PT, MAY TRANSFER TO TELE.
--- NOTE | 2019-07-20 13:10 | NUR ---
PT TOLERATED EXTUBATION, NO MORE AGITATION. PT WAS LYING ON BED, SLEEPING WELL. EASY TO AROUSE. PT WA A/OX 3, FOLLOWS COMMAND, NO SOB. BREATHING EVEN ON 2L @NC. NO REATRAINS, NO SITTER. MOM CAME IN AND LEFT. PT'S INFO WAS UPDATED TO MOM.
--- NOTE | 2019-07-20 18:00 | NUR ---
THE MOTHER AT BEDSIDE PT, WANT TO GO HOME ,BUT WHEN KATHLEEN SANCHEZ SAID HE WILL SEE HER TO [place] , BUT SHE DID NOT WANT TO STAY. Maico ASTORGA , HE SAID IF THE PATIENT DID NOT WANT TO STAY ,LET HER GO AGAINST MEDICAL ADVICE.
--- NOTE | 2019-07-20 18:30 | NUR ---
SARAH SUPP. AWARE AND COME TO TALK TO THE PATIENT . SHE STILL WANTED TO [place].
--- NOTE | 2019-07-20 18:35 | NUR ---
PATIENT SIGN AMA GO HOME WITH THE MOTHER.
--- NOTE | 2019-07-20 18:40 | NUR ---
W/C'D PT OUT HOSPITAL WITH MOM. MOM DRIVE PRIVATE CAR AND BROUGHT PT HOME.
[2019-07-20] MEDS ORDERED: ZOLPIDEM 5 MG TAB PO PRN (21:00)
== END 2019-07-20 18:35 | disposition left against medical advice (07) | DRG 812 ==
LOC: MED 13:30 → MIC 16:05
PROVIDERS: ADMIT Hospitalist; ATTEND Hospitalist
PROC: 0BH17EZ Insertion of Endotracheal Airway into Trachea, Via Natural or Artificial Opening (ICD-10-PCS; principal; 2019-07-19)
PROC: 5A1935Z Respiratory Ventilation, Less than 24 Consecutive Hours (ICD-10-PCS; 2019-07-19)
PROC: 02HV33Z Insertion of Infusion Device into Superior Vena Cava, Percutaneous Approach (ICD-10-PCS; 2019-07-19)
PROC: B548ZZA Ultrasonography of Superior Vena Cava, Guidance (ICD-10-PCS; 2019-07-19)
DX: T42.4X1A Poisoning by benzodiazepines, accidental (unintentional), initial encounter (principal); R40.20 Unspecified coma; J96.02 Acute respiratory failure with hypercapnia; J96.01 Acute respiratory failure with hypoxia; G92 Toxic encephalopathy; F33.2 Major depressive disorder, recurrent severe without psychotic features; E86.0 Dehydration; F41.9 Anxiety disorder, unspecified; E87.2 Acidosis; Y92.89 Other specified places as the place of occurrence of the external cause; Z79.899 Other long term (current) drug therapy
CPT/HCPCS: 31500; 36415; 36600; 51702; 70450; 71045; 80053; 80305; 81001; 82803; 83605; 83735; 84100; 84443; 85025; 85610; 85730; 87040; 87081; 87804; 94003; 96361; 96374; 96375; 99291; C1751; G0480; J1650; J2250; J2270; J2310; J2405; J2704; J3480; J3490; J7030; J7042; Q0092

== ENCOUNTER 2019-12-29 23:54 | Emergency (ER) | payer OTHER ==
[~2019-12-29] VITALS: Ht 165.1 cm; Wt 65.8 kg
[2019-12-30] VITALS: BP 132/87
[2019-12-30] MEDS ORDERED: HYDROcodone/APAP 5/325 MG 1 TAB TAB PO ONE (00:15)
[2019-12-30] MEDS ORDERED: LORazepam 2 MG/ML VIAL IM ONE (00:35)
[2019-12-30 00:42] LABS: BASOPHILS # (AUTO) 0.1 K/uL (0.00-0.22); BASOPHILS % (AUTO) 0.7 % (0.0-2.0); EOSINOPHILS % (AUTO) 0.1 % (0.0-4.0); HEMATOCRIT 41.6 % (36-48); HEMOGLOBIN 13.8 g/dL (12.0-16.0); LYMPHOCYTES # (AUTO) 2.3 K/uL (2.5-16.5); LYMPHOCYTES % (AUTO) 18.6 % (20.5-51.1); MEAN CORPUSCULAR HEMOGLOBIN 29 pg (27-31); MEAN CORPUSCULAR HGB CONC 33 g/dL (33-37); MONOCYTES # (AUTO) 0.6 K/uL (0.8-1.0); MONOCYTES % (AUTO) 4.9 % (1.7-9.3); NEUTROPHILS # (AUTO) 9.2 K/uL (1.8-7.7); NEUTROPHILS % (AUTO) 75.7 % (42.2-75.2); PLATELET COUNT (AUTO) 294 K/uL (140-450); RED BLOOD CELL COUNT(AUTO) 4.74 MIL/uL (4.20-5.40); RED CELL DISTRIBUTION WIDTH 14.1 % (11.6-13.7); WHITE BLOOD COUNT (AUTO) 12.2 K/uL (4.8-10.8)
[2019-12-30 00:59] LABS: ALBUMIN 4.2 g/dL (3.4-5.0); ANION GAP 19.1 (8-16); ASPARTATE AMINOTRANSFERASE 23 U/L (15-37); CARBON DIOXIDE 22.2 mmol/L (21-32); CHLORIDE 106 mmol/L (98-107); CREATININE 0.8 mg/dL (0.6-1.3); GFR ARICAN-AMERICAN 110 mL/min (>90); GLUCOSE 107 mg/dL (74-106); POTASSIUM 3.3 mmol/L (3.5-5.1); SODIUM SERUM 144 mmol/L (136-145); TOTAL BILIRUBIN 0.3 mg/dL (0.0-1.0); UREA NITROGEN, BLOOD 10 mg/dL (7-18)
[2019-12-30 01:00] LABS: ACETAMINOPHEN < 0.5 ug/ml (10-30); SALICYLATE < 2.8 mg/dL (2.8-20.0)
[2019-12-30 01:17] LABS: APPEARANCE,URINE CLEAR (CLEAR); BILIRUBIN,URINE NEGATIVE (NEGATIVE); BLOOD, URINE NEGATIVE (NEGATIVE); COLOR,URINE YELLOW (YELLOW); UGLUCOSE NEGATIVE (NEGATIVE)
[2019-12-30 01:18] LABS: LEUKOCYTE ESTERASE ,URINE NEGATIVE (NEGATIVE); NITRITE, URINE NEGATIVE (NEGATIVE)
[2019-12-30] MEDS ORDERED: HALOPERIDOL IM 5 MG/ML VIAL IM ONE (01:35)
[2019-12-30 01:48] LABS: BARBITURATE, URINE NEGATIVE ng/ml (NEG <=200); BENZODIAZEPINE, URINE POSITIVE ng/mL (NEG <=200); CANNABINOID, URINE NEGATIVE ng/mL (NEG <=50); COCAINE, URINE POSITIVE ng/mL (NEG <=300); OPIATE, URINE NEGATIVE ng/mL (NEG <=2000); PHENCYCLIDINE SCREEN,URINE NEGATIVE ng/mL (NEG <=25)
[2019-12-30 15:00] VITALS: BP 110/74
== END 2019-12-30 15:00 | disposition home or self-care (01) ==
LOC: MED 23:54
DX: F19.10 Other psychoactive substance abuse, uncomplicated (principal); R45.1 Restlessness and agitation; R45.851 Suicidal ideations
CPT/HCPCS: 36415; 80053; 80305; 81003; 81025; 85025; 96372; 99285; G0480; G0482; J1630; J2060; 99284